=== PATIENT | female | born 1950 | race Caucasian/White ===

== ENCOUNTER → 2017-07-11 15:35 | Outpatient (CLI) | payer MEDICARE, OTHER, SELFPAY ==
[2017-07-11 18:22] LABS: Uric Acid 5.3 mg/dL (2.6-6.0)
== END ==
PROVIDERS: Visit Provider Family Medicine
DX: M19.90 Unspecified osteoarthritis, unspecified site (principal)
CPT/HCPCS: 36415; 84550

== ENCOUNTER → 2017-08-05 10:45 | Outpatient (CLI) | payer MEDICARE, OTHER, SELFPAY ==
--- NOTE | 2017-08-05 10:47 | US_ITS ---
STUDY: THYROID ULTRASOUND REASON FOR EXAM: Female, 67 years old. Goiter TECHNIQUE: Ultrasound evaluation of the thyroid was performed with real-time and static yang-scale imaging. COMPARISON: Previous study not available FINDINGS: RIGHT LOBE: The right lobe of the thyroid gland measures 5.6 x 1.9 x 1.9 cm. There is a homogeneous echotexture. There are 2 solid nodules noted. Upper pole nodule measures 0.9 x 0.6 x 0.7 cm, lower pole nodule measures 0.5 x 0.4 x 0.2 cm. LEFT LOBE: The left lobe of the thyroid gland measures 5.1 x 1.8 x 1.3 cm. There is a homogeneous echotexture. There are 3 solid nodules, largest measures 0.6 cm, smallest 0.4 cm. ISTHMUS: The isthmus measures 4 mm. The regional lymph nodes are normal. US/Thyroid IMPRESSION: Enlarged homogeneous thyroid gland with multiple bilateral solid nodules all measuring less than 1 cm. Findings are suggestive of goiter. Recommend comparison with previous study if it can be located, if not, recommend either 6 month follow-up to assure stability or further evaluation with thyroid uptake study to assess uptake characteristics of the nodules. Electronically Signed: Donald Elmore MD at 11:46 EDT , Service support ,
== END ==
PROVIDERS: Family Provider Family Medicine; PCP Family Medicine; Visit Provider Family Medicine
DX: E04.9 Nontoxic goiter, unspecified (principal)
CPT/HCPCS: 76536

== ENCOUNTER → 2017-08-11 10:32 | Outpatient (CLI) | payer MEDICARE, OTHER, SELFPAY ==
[2017-08-11 12:55] LABS: Free T3 2.8 pg/mL (2.18-3.98); Thyroid Stim Hormone (TSH) 1.13 uIU/mL (0.358-3.74)
== END ==
PROVIDERS: Family Provider Family Medicine; PCP Family Medicine; Visit Provider Family Medicine
DX: E04.2 Nontoxic multinodular goiter (principal)
CPT/HCPCS: 36415; 84439; 84443; 84481